=== PATIENT | male | born 1965 | race Caucasian/White ===

== ENCOUNTER 2016-07-08 20:07 | Emergency (ER) | payer OTHER ==
[~2016-07-08] VITALS: Ht 167.6 cm; Wt 76.2 kg
[~2016-07-08 20:07] MED LIST: CYCLOBENZAPRINE10 MG PO; NAPROSYN500 MG PO
[2016-07-08] MEDS ORDERED: VIBRAMYCIN100 MG PO (23:25)
[2016-07-08] MEDS ORDERED: NAPROSYN500 MG PO (23:26)
[2016-07-08 23:59] VITALS: BP 136/96
== END 2016-07-08 23:59 | disposition home or self-care (01) ==
LOC: EME 20:07
PROC: 0H9DXZZ Drainage of Right Lower Arm Skin, External Approach (ICD-10-PCS; principal; 2016-07-08)
DX: L02.413 Cutaneous abscess of right upper limb (principal); F17.200 Nicotine dependence, unspecified, uncomplicated; F11.10 Opioid abuse, uncomplicated
CPT/HCPCS: 99281; 99284

== ENCOUNTER 2016-08-13 14:13 | Emergency (ER) | payer OTHER ==
[~2016-08-13] VITALS: Ht 167.6 cm; Wt 78.6 kg
[~2016-08-13 14:13] MED LIST changes: +VIBRAMYCIN100 MG PO
[2016-08-13] MEDS ORDERED: NAPROSYN500 MG PO (14:38)
[2016-08-13] MEDS ORDERED: PEN-VEE K,VEET500 MG PO (14:38)
[2016-08-13] MEDS ORDERED: ULTRAM50 MG PO (14:38)
[2016-08-13 14:45] VITALS: BP 133/74
== END 2016-08-13 14:46 | disposition home or self-care (01) ==
LOC: EME 14:13 → EXP 14:13
DX: K04.7 Periapical abscess without sinus (principal); K02.9 Dental caries, unspecified; E78.5 Hyperlipidemia, unspecified; K21.9 Gastro-esophageal reflux disease without esophagitis; F17.200 Nicotine dependence, unspecified, uncomplicated
CPT/HCPCS: 99281; 99283

== ENCOUNTER 2016-09-06 12:00 | Emergency (ER) | payer OTHER ==
[~2016-09-06] VITALS: Ht 167.6 cm; Wt 73.6 kg
[~2016-09-06 12:00] MED LIST changes: +PEN-VEE K,VEET500 MG PO; +ULTRAM50 MG PO
[2016-09-06] MEDS ORDERED: KEFLEX500 MG PO (13:52)
[2016-09-06] MEDS ORDERED: BACTRIM,SEPT1 TABLET PO (13:52)
[2016-09-06] MEDS ORDERED: NAPROSYN500 MG PO (13:52)
[2016-09-06 14:13] VITALS: BP 142/89
== END 2016-09-06 14:15 | disposition home or self-care (01) ==
LOC: RME 12:00 → EME 12:00 → RME 14:15
PROC: 0H9CXZZ Drainage of Left Upper Arm Skin, External Approach (ICD-10-PCS; principal; 2016-09-06)
DX: L02.414 Cutaneous abscess of left upper limb (principal); L03.114 Cellulitis of left upper limb; E78.5 Hyperlipidemia, unspecified; K21.9 Gastro-esophageal reflux disease without esophagitis; Z91.5 Personal history of self-harm; F17.200 Nicotine dependence, unspecified, uncomplicated
CPT/HCPCS: 87070; 87075; 87076; 87205; 99281; 99284

== ENCOUNTER 2016-10-13 20:27 | Emergency (ER) | payer OTHER ==
[~2016-10-13] VITALS: Ht 167.6 cm; Wt 73.1 kg
[~2016-10-13 20:27] MED LIST changes: +BACTRIM,SEPT1 TABLET PO; +KEFLEX500 MG PO
[2016-10-13 21:22] VITALS: BP 137/99
== END 2016-10-13 22:38 | disposition left against medical advice (07) ==
LOC: EME → EDBD 20:27 → EME 20:27
PROC: 0RSJXZZ Reposition Right Shoulder Joint, External Approach (ICD-10-PCS; principal; 2016-10-13)
DX: M24.411 Recurrent dislocation, right shoulder (principal); E78.5 Hyperlipidemia, unspecified
CPT/HCPCS: 73030; 99281; 99284; J2270; J2405

== ENCOUNTER 2016-10-19 20:32 | Emergency (ER) | payer OTHER ==
[2016-10-20] MEDS ORDERED: TORADOL10 MG PO (03:23)
== END 2016-10-19 21:31 | disposition left against medical advice (07) ==
LOC: EME 20:32
DX: F10.10 Alcohol abuse, uncomplicated (principal); Z53.21 Procedure and treatment not carried out due to patient leaving prior to being seen by health care provider

== ENCOUNTER 2016-10-20 01:15 | Emergency (ER) | payer OTHER ==
[~2016-10-20] VITALS: Ht 167.6 cm; Wt 73.2 kg
[2016-10-20 02:35] LABS: HEMATOCRIT 38.6 % (38.0-50.0); MCHC 33.9 G/DL (30.0-36.0); MCV 91.5 FL (86-99); MEAN PLAT.VOLUME 10.4 uM^3 (9.0-12.4); PLATELET COUNT 189 K/uL (156-360); RBC DIS.WIDTH-CV 14.6 % (11.8-14.6); RBC DIS.WIDTH-SD 49.1 % (39-53); RED BLOOD COUNT 4.22 M/uL (4.00-5.50); WHITE BLOOD COUNT 5.7 K/uL (4.1-10.2)
[2016-10-20 02:46] LABS: CHLORIDE 104 mEq/L (99-109); POTASSIUM 3.5 mEq/L (3.7-5.4); SODIUM 141 mEq/L (136-147)
[2016-10-20 02:48] LABS: GLUCOSE 193 mg/dL (70-99)
[2016-10-20 02:49] LABS: ANION GAP 13 MEQ/L (2-14)
[2016-10-20 02:51] LABS: SERUM ETHYL ALCOHOL 109 mg/dL
[2016-10-20 02:52] LABS: GFR ESTIMATE (CALCULATED) > 59 mL/min/
[2016-10-20 02:54] LABS: UREA NITROGEN (BUN) 6 mg/dL (9-23)
[2016-10-20 02:55] LABS: SALICYLATE < 5.0 MG/DL (15-30)
[2016-10-20] MEDS ORDERED: TORADOL10 MG PO (03:23)
[2016-10-20 03:42] VITALS: BP 132/77
== END 2016-10-20 03:47 | disposition home or self-care (01) ==
LOC: EME → EDBD 01:15 → EME 01:15
PROVIDERS: Emergency Medicine
PROC: 0HQ0XZZ Repair Scalp Skin, External Approach (ICD-10-PCS; principal; 2016-10-20)
DX: S01.01XA Laceration without foreign body of scalp, initial encounter (principal); S06.0X9A Concussion with loss of consciousness of unspecified duration, initial encounter; F19.10 Other psychoactive substance abuse, uncomplicated; T50.991A Poisoning by other drugs, medicaments and biological substances, accidental (unintentional), initial encounter; W18.30XA Fall on same level, unspecified, initial encounter; Y92.89 Other specified places as the place of occurrence of the external cause; E78.5 Hyperlipidemia, unspecified; F17.200 Nicotine dependence, unspecified, uncomplicated
CPT/HCPCS: 70450; 70486; 72125; 80048; 81003; 85027; 99281; 99285; G0480; J1885; J2060; J2270

== ENCOUNTER 2016-10-24 22:40 | Inpatient (IN) | payer OTHER ==
[~2016-10-24] VITALS: Ht 167.6 cm; Wt 73.1 kg
[~2016-10-24 22:40] MED LIST changes: +TORADOL10 MG PO
[2016-10-24 23:40] LABS: HEMATOCRIT 40.3 % (38.0-50.0); MCH 31.7 PG (29.0-34.0); MCHC 34.5 G/DL (30.0-36.0); MEAN PLAT.VOLUME 9.8 uM^3 (9.0-12.4); PLATELET COUNT 212 K/uL (156-360); RBC DIS.WIDTH-CV 15.1 % (11.8-14.6); RBC DIS.WIDTH-SD 50.8 % (39-53); RED BLOOD COUNT 4.38 M/uL (4.00-5.50); WHITE BLOOD COUNT 7.6 K/uL (4.1-10.2)
[2016-10-24 23:46] LABS: CHLORIDE 105 mEq/L (99-109); POTASSIUM 3.8 mEq/L (3.7-5.4); SODIUM 140 mEq/L (136-147)
[2016-10-24 23:47] LABS: GLUCOSE 90 mg/dL (70-99)
[2016-10-24 23:49] LABS: ANION GAP 12 MEQ/L (2-14)
[2016-10-24 23:51] LABS: GFR ESTIMATE (CALCULATED) > 59 mL/min/; SERUM ETHYL ALCOHOL 125 mg/dL
[2016-10-24 23:52] LABS: UREA NITROGEN (BUN) 11 mg/dL (9-23)
[2016-10-25 01:48] LABS: ADD MIUA? NO; BILIRUBIN NEGATIVE; BLOOD NEGATIVE; COLOR STRAW ((YELLOW)); GLUCOSE (STRIP) NEGATIVE; KETONES NEGATIVE; LEUKOCYTES NEGATIVE; NITRITE NEGATIVE; PROTEIN (STRIP) NEGATIVE; SPECIFIC GRAVITY 1.006 (1.000-1.030); UCUL ADDED? NO; UROBILINOGEN 0.2 MG/DL (0.2-1.0)
[2016-10-25 02:11] LABS: ADD MEDTOX COMMENT Y; AMPHETAMINE NEGATIVE (500 ng/mL); BARBITURATES NEGATIVE (200 ng/mL); BENZODIAZEPINES NEGATIVE (150 ng/mL); COCAINE PRESUMPTIVE POSITIVE (150 ng/mL); INTERNAL CONTROLS VALID? YES; METHADONE NEGATIVE (200 ng/mL); METHAMPHETAMINE NEGATIVE (500 ng/mL); OPIATES (MORPHINE) NEGATIVE (100 ng/mL); OXYCODONE NEGATIVE (100 ng/mL); PHENCYCLIDINE NEGATIVE (25 ng/mL); PROPOXYPHENE NEGATIVE (300 ng/mL); THC CANNABINOIDS PRESUMPTIVE POSITIVE (50 ng/mL); TRICYCLIC ANTIDEPRESSANTS NEGATIVE (300 ng/mL)
[2016-10-25 03:53] VITALS: BP 125/64
[2016-10-25 07:52] VITALS: BP 109/56
[2016-10-25 15:05] VITALS: BP 99/56
[2016-10-25 18:11] VITALS: BP 108/58
[2016-10-26 07:50] VITALS: BP 130/75
[2016-10-26 15:11] VITALS: BP 116/58
[2016-10-27 07:46] VITALS: BP 126/61
[2016-10-27 15:13] VITALS: BP 128/81
[2016-10-28 07:25] VITALS: BP 124/63
[2016-10-28 15:40] VITALS: BP 154/84
[2016-10-28 19:26] VITALS: BP 110/55
[2016-10-29 07:39] VITALS: BP 124/64
[2016-10-29] MEDS ORDERED: DIVALPROEX SOD250 M1 PO (09:15)
[2016-10-29] MEDS ORDERED: CITALOPRAM HBR20 MG PO (09:15)
[2016-10-29] MEDS ORDERED: OLANZAPINE10 MG PO (09:15)
== END 2016-10-29 10:15 | disposition home or self-care (01) | DRG 885 ==
LOC: EME 22:40 → 1WEST 10-25 02:18 → EDOF 10-25 02:18 → 1WEST 10-25 03:41
PROVIDERS: Emergency Medicine
DX: F31.9 Bipolar disorder, unspecified (principal); R45.850 Homicidal ideations; R45.851 Suicidal ideations; F60.2 Antisocial personality disorder; G89.29 Other chronic pain; M54.9 Dorsalgia, unspecified; M25.519 Pain in unspecified shoulder; F12.10 Cannabis abuse, uncomplicated; M79.606 Pain in leg, unspecified; F17.210 Nicotine dependence, cigarettes, uncomplicated; F14.10 Cocaine abuse, uncomplicated; S62.610D Displaced fracture of proximal phalanx of right index finger, subsequent encounter for fracture with routine healing
CPT/HCPCS: 73130; 80048; 81003; 82607; 82746; 84443; 84999; 85027; 90839; 97166 GO; 99281; 99284; G0480; J3486

== ENCOUNTER → 2017-01-10 | Outpatient (CLI) | payer OTHER ==
[~2017-01-10] MED LIST changes: +CITALOPRAM HBR20 MG PO; +DIVALPROEX SOD250 M1 PO; +OLANZAPINE10 MG PO
== END | disposition home or self-care (01) ==
LOC: CDC 08:24
DX: M25.511 Pain in right shoulder (principal); M25.411 Effusion, right shoulder; M25.319 Other instability, unspecified shoulder
CPT/HCPCS: 93000

== ENCOUNTER 2017-01-15 11:59 | Emergency (ER) | payer OTHER ==
[~2017-01-15] VITALS: Ht 170.2 cm; Wt 83.4 kg
[2017-01-15 12:16] VITALS: BP 134/73
== END 2017-01-15 13:02 | disposition left against medical advice (07) ==
LOC: EME 11:59
DX: G89.18 Other acute postprocedural pain (principal); M25.511 Pain in right shoulder; M25.411 Effusion, right shoulder; Z98.890 Other specified postprocedural states; F17.200 Nicotine dependence, unspecified, uncomplicated
CPT/HCPCS: 99281; 99283

== ENCOUNTER 2017-03-30 18:34 | Inpatient (IN) | payer OTHER ==
[~2017-03-30] VITALS: Ht 167.6 cm; Wt 75.3 kg
[2017-03-30 19:14] LABS: HEMATOCRIT 45.4 % (38.0-50.0); MCH 31.3 PG (29.0-34.0); MCHC 34.8 G/DL (30.0-36.0); MCV 89.9 FL (86-99); PLATELET COUNT 199 K/uL (156-360); RBC DIS.WIDTH-CV 12.7 % (11.8-14.6); RBC DIS.WIDTH-SD 42.1 % (39-53); RED BLOOD COUNT 5.05 M/uL (4.00-5.50); WHITE BLOOD COUNT 7.7 K/uL (4.1-10.2)
[2017-03-30 19:24] LABS: CHLORIDE 106 mEq/L (99-109); POTASSIUM 3.5 mEq/L (3.7-5.4); SODIUM 141 mEq/L (136-147)
[2017-03-30 19:26] LABS: GLUCOSE 93 mg/dL (70-99)
[2017-03-30 19:27] LABS: ANION GAP 13 MEQ/L (2-14)
[2017-03-30 19:29] LABS: SERUM ETHYL ALCOHOL 170 mg/dL
[2017-03-30 19:30] LABS: GFR ESTIMATE (CALCULATED) > 59 mL/min/
[2017-03-30 19:32] LABS: UREA NITROGEN (BUN) 5 mg/dL (9-23)
[2017-03-30 19:33] LABS: SALICYLATE < 5.0 MG/DL (15-30)
[2017-03-30 19:56] LABS: AMPHETAMINE NEGATIVE (500 ng/mL); BARBITURATES NEGATIVE (200 ng/mL); BENZODIAZEPINES NEGATIVE (150 ng/mL); COCAINE NEGATIVE (150 ng/mL); INTERNAL CONTROLS VALID? YES; METHADONE NEGATIVE (200 ng/mL); METHAMPHETAMINE NEGATIVE (500 ng/mL); OPIATES (MORPHINE) NEGATIVE (100 ng/mL); OXYCODONE NEGATIVE (100 ng/mL); PHENCYCLIDINE NEGATIVE (25 ng/mL); PROPOXYPHENE NEGATIVE (300 ng/mL); THC CANNABINOIDS PRESUMPTIVE POSITIVE (50 ng/mL); TRICYCLIC ANTIDEPRESSANTS NEGATIVE (300 ng/mL)
[2017-03-30 19:57] LABS: ADD MEDTOX COMMENT Y
[2017-03-31 00:52] VITALS: BP 136/67
[2017-03-31 07:57] VITALS: BP 113/68
[2017-03-31 15:38] VITALS: BP 141/67
[2017-04-01 07:52] VITALS: BP 137/63
[2017-04-01] MEDS ORDERED: DIVALPROEX SOD250 M1 PO (08:57)
[2017-04-01] MEDS ORDERED: CITALOPRAM HBR20 MG PO (08:57)
== END 2017-04-01 11:10 | disposition home or self-care (01) | DRG 884 ==
LOC: EME 18:34 → 1WEST 22:47 → EDOF 22:47 → ENRESERV 23:53 → 1WEST 03-31 00:46
PROVIDERS: Emergency Medicine
DX: F06.34 Mood disorder due to known physiological condition with mixed features (principal); R45.851 Suicidal ideations; E78.5 Hyperlipidemia, unspecified; K21.9 Gastro-esophageal reflux disease without esophagitis; F10.10 Alcohol abuse, uncomplicated; F11.10 Opioid abuse, uncomplicated; F12.10 Cannabis abuse, uncomplicated; F14.10 Cocaine abuse, uncomplicated; F17.210 Nicotine dependence, cigarettes, uncomplicated; F19.10 Other psychoactive substance abuse, uncomplicated; F60.2 Antisocial personality disorder; Y90.6 Blood alcohol level of 120-199 mg/100 ml; F41.9 Anxiety disorder, unspecified; Z91.5 Personal history of self-harm; Z91.19 Patient's noncompliance with other medical treatment and regimen
CPT/HCPCS: 80048; 84999; 85027; 90837; 99281; 99285; G0480; J1630; J2060; Q0177

== ENCOUNTER 2017-04-17 08:35 | Inpatient (IN) | payer OTHER ==
[~2017-04-17] VITALS: Ht 167.6 cm; Wt 81.8 kg
[2017-04-17 09:14] LABS: HEMATOCRIT 41.7 % (38.0-50.0); MCH 31.5 PG (29.0-34.0); MCHC 34.8 G/DL (30.0-36.0); MCV 90.5 FL (86-99); MEAN PLAT.VOLUME 9.9 uM^3 (9.0-12.4); PLATELET COUNT 211 K/uL (156-360); RBC DIS.WIDTH-CV 13.2 % (11.8-14.6); RBC DIS.WIDTH-SD 43.7 % (39-53); RED BLOOD COUNT 4.61 M/uL (4.00-5.50); WHITE BLOOD COUNT 5.3 K/uL (4.1-10.2)
[2017-04-17 09:27] LABS: CHLORIDE 101 mEq/L (99-109); POTASSIUM 3.9 mEq/L (3.7-5.4); SODIUM 138 mEq/L (136-147)
[2017-04-17 09:29] LABS: GLUCOSE 114 mg/dL (70-99)
[2017-04-17 09:30] LABS: ANION GAP 10 MEQ/L (2-14)
[2017-04-17 09:32] LABS: GFR ESTIMATE (CALCULATED) > 59 mL/min/; SERUM ETHYL ALCOHOL < 10 mg/dL
[2017-04-17 09:33] LABS: UREA NITROGEN (BUN) 9 mg/dL (9-23)
[2017-04-17 13:49] VITALS: BP 133/79
[2017-04-17 15:29] VITALS: BP 140/87
[2017-04-18 07:36] VITALS: BP 87/48
[2017-04-18 11:30] VITALS: BP 107/66
[2017-04-18 13:08] VITALS: BP 103/56
[2017-04-18 14:22] VITALS: BP 90/55
[2017-04-18 17:43] VITALS: BP 97/55
[2017-04-18 19:18] VITALS: BP 104/58
[2017-04-19 07:55] VITALS: BP 89/55
[2017-04-19 10:54] VITALS: BP 125/62
[2017-04-19 15:38] VITALS: BP 104/50
[2017-04-20 07:32] VITALS: BP 92/55
[2017-04-20 15:11] VITALS: BP 131/55
[2017-04-21 07:47] VITALS: BP 102/55
[2017-04-21] MEDS ORDERED: ARIPIPRAZOLE10 MG PO (10:08)
[2017-04-21] MEDS ORDERED: DIVALPROEX SOD500 M1 PO (10:08)
[2017-04-21] MEDS ORDERED: HYDROXYZINE PAM50 MG PO (11:30)
== END 2017-04-21 13:12 | disposition home or self-care (01) | DRG 885 ==
LOC: EME 08:35 → 1WEST 12:49 → EDOF 12:49 → 1WEST 12:49 → ENRESERV 13:43 → 1WEST 13:44
PROVIDERS: Nurse Practitioner Family
DX: F31.9 Bipolar disorder, unspecified (principal); F60.2 Antisocial personality disorder; F11.23 Opioid dependence with withdrawal; R45.851 Suicidal ideations; F10.10 Alcohol abuse, uncomplicated; E78.5 Hyperlipidemia, unspecified; K21.9 Gastro-esophageal reflux disease without esophagitis; F17.200 Nicotine dependence, unspecified, uncomplicated; S51.812A Laceration without foreign body of left forearm, initial encounter; Y35.393A Legal intervention involving other blunt objects, suspect injured, initial encounter; G89.29 Other chronic pain; M25.519 Pain in unspecified shoulder; Z91.14 Patient's other noncompliance with medication regimen; Z91.5 Personal history of self-harm
CPT/HCPCS: 73090; 80048; 80164; 85027; 90837; 97166 GO; 99281; 99285; G0480; J0572; J0574; Q0177